=== PATIENT | male | born 1985 | race Caucasian/White ===

== ENCOUNTER 2016-10-07 00:38 | Emergency (ER) | payer SELFPAY ==
[~2016-10-07] VITALS: Ht 177.8 cm; Wt 67.0 kg
[~2016-10-07 00:38] MED LIST: MMW SSP; PENI500T PO; Z.0.NO CURRENT MEDS
[2016-10-07 00:44] VITALS: BP 102/56; PULSE 74; RESP 16; TEMP 98.7; O2SAT 99
[2016-10-07] MEDS ORDERED: MORPHINE SULFATE 4 MG/ML INJ IV PUSH ONE (01:30)
[2016-10-07] MEDS ORDERED: DIPHTH/TETANUS/ACEL PERTUSSIS (BOOSTER) 0.5 ML VIAL/PFS IM ONE (01:30)
[2016-10-07] MEDS ORDERED: LIDOCAINE HCL 2% 50 ML VIAL INFIL ONE (02:30)
--- NOTE | 2016-10-07 03:11 | RADRPT ---
EXAM DATE/TIME: 10/07/2016 02:42 [place] COMPARISON: No previous studies available for comparison. INDICATIONS : Laceration to palm of left hand. MEDICAL HISTORY : None. SURGICAL HISTORY : None. ENCOUNTER: Initial ACUITY: 1 day PAIN SCORE: 8/10 LOCATION: Left upper extremity FINDINGS: Three view examination of the left hand demonstrates no soft tissue swelling, dislocation, or fractur e. The carpal bones appear intact. The interphalangeal and metacarpophalangeal joints are intact. Bony mineralization is normal. CONCLUSION: 1. No acute findings. Roby Heart MD on October 07, 2016 at 3:08 Board Certified Radiologist. This report was verified electronically.
[2016-10-07] MEDS ORDERED: oxyCODONE/ACETAMINOPHEN 5 MG/325 MG TAB PO ONE (03:30)
--- NOTE | 2016-10-07 05:09 | PD ---
Physical Exam Date Seen by Provider: Oct 07, 2016 Time Seen by Provider: 05:01 Narrative Left hand: Patient has a deep laceration to the palmar surface measuring approximately 9 cm. The laceration goes through the subcutaneous tissue into the muscle belly of the hand. Patient is able to extend his fingers freely and flex them fully. There is no apparent tendon injury. No apparent nerve or vascular injury. Bleeding under control. Data Data Last Documented VS Vital Signs Date Time Temp Pulse Resp B/P Pulse Ox O2 Delivery O2 Flow Rate FiO2 10/07/16 00:51 74 16 10/07/16 00:44 98.7 102/56 99 Orders Morphine Inj (Morphine Inj) (10/07/16 01:30) [id number] (Booster) Inj (Boostrix (10/07/16 01:30) Lidocaine 2% Inj (Xylocaine 2% Inj) (10/07/16 02:30) Hand, Complete ([id number]) (10/07/16 ) Oxycodone-Acetamin 5-325 Mg (Percocet (10/07/16 03:30) MDM Medical Record Reviewed: Yes Supervised Visit with DORON: Yes Interpretation(s) Last 24 hours Impressions Hand X-Ray 10/07/16 0000 Signed Impressions: Service Date/Time: October 02:42 - CONCLUSION: 1. No acute findings. Roby Heart MD Differential Diagnosis MDM: High Differential diagnoses: Fracture, sprain, strain, dislocation, contusion, neurovascular injury Narrative Course Patient's hand laceration closed at the request of Dr. Sainz and Dr. Will the hand surgeon. This is a complex left hand laceration Procedures Procedure Narrative LACERATION LOCATION: Left volar palm LENGTH: 9 cm NUMBER OF STITCHES/JOE: 38 REPAIR: The area of the laceration was prepped with Betadine and sterilely draped. The laceration was infiltrated with 1% lidocaine with epinephrine. The wound was copiously irrigated and explored without evidence of foreign body , tendon injury or neurovascular injury. The muscle belly of the hypothenar eminence is approximated using 4-0 Vicryl. The subcutaneous tissues are approximated using 4-0 Vicryl. The skin was closed using 5-0 proline. This was a complex 3 layer repair. A sterile dressing was applied. A large baseball mitt bulky dressing. The patient was advised to keep the dressing clean and dry. Patient tolerated the procedure well. Diagnosis Primary Impression: complex left hand laceration Referrals: Sherlyn Will MD 2 days Patient Instructions: General Instructions Departure Forms: Tests/Procedures, Work Release Special Instructions: No use of the left hand until released by Dr. Will the hand surgeon. Additional Instruction: Rest. Strict elevation above the heart. Keep her hand clean and dry. Do not disrupt the dressing. Medications as directed. Call Dr. Will for an appointment. Return to the ER if any problems. Med/Other Pt SpecificInfo: Prescription(s) given, Wound Care Scripts No Active Prescriptions or Reported Meds Disposition: 01 DISCHARGE HOME Condition: Stable Roby Love Oct 07, 2016 05:08
[2016-10-07] MEDS ORDERED: CEPH-460 PO (05:24)
--- NOTE | 2016-10-07 05:25 | PD ---
HPI Chief Complaint: Laceration/Skin Injury Time Seen by Provider: 01:03 Travel History International Travel<30 days: No Contact w/Intl Traveler<30days: No Traveled to known affect area: No History of Present Illness HPI Patient is a 30-year-old male who comes in with a laceration to his left hand. He says he was sharpening a knife today when the stone slipped and he cut his hand. It happened this evening, just prior to arrival. He says it started bleeding heavily, so they wrapped his hand and brought him in. He does not know when his last tetanus shot was. He denies any other injuries. He denies numbness to his hands. He is able to move his fingers. [facility] Past Medical History Medical History: Denies Significant Hx Past Surgical History Other Surgery: Yes (foot surgery 16 years ago) Social History Alcohol Use: Yes Tobacco Use: Yes (1/2 PK PER DAY) Substance Use: Yes (WEED DAILY) Allergies-Medications (Allergen,Severity, Reaction): Coded Allergies: No Known Allergies (Verified , 10/07/16) Reported Meds & Prescriptions Reported Meds & Active Scripts Active No Active Prescriptions or Reported Medications Review of Systems General / Constitutional: No: Fever HENT: No: Headaches Cardiovascular: No: Chest Pain or Discomfort Respiratory: No: Shortness of Breath Gastrointestinal: No: Nausea, Vomiting Musculoskeletal: Positive: Pain, Other (laceration) Neurologic: No: Weakness, Sensory Disturbance Physical Exam Narrative GENERAL: Awake and alert, in no acute distress. SKIN: Warm and dry. Large laceration to left ulnar side of the hand. Skin and muscle aren't gaping. Blood is slowly oozing. HEAD: Atraumatic. Normocephalic. EYES: Pupils equal and round. No scleral icterus. NECK: Trachea midline. No JVD. CARDIOVASCULAR: Regular rate and rhythm. No murmur appreciated. RESPIRATORY: No accessory muscle use. Clear to auscultation. Breath sounds equal bilaterally. MUSCULOSKELETAL: No obvious deformities. No clubbing. No cyanosis. No edema. Able to fully extend and flex the fingers of the left hand. Radial pulse intact. Sensation mildly decreased to the left fourth and fifth fingers. Capillary refill intact, <2 sec. NEUROLOGICAL: Awake and alert. No obvious cranial nerve deficits. Motor grossly within normal limits. Normal speech. Data Data Last Documented VS Vital Signs Date Time Temp Pulse Resp B/P Pulse Ox O2 Delivery O2 Flow Rate FiO2 10/07/16 00:51 74 16 10/07/16 00:44 98.7 102/56 99 Orders Morphine Inj (Morphine Inj) (10/07/16 01:30) [id number] (Booster) Inj (Boostrix (10/07/16 01:30) Lidocaine 2% Inj (Xylocaine 2% Inj) (10/07/16 02:30) Hand, Complete ([id number]) (10/07/16 ) Oxycodone-Acetamin 5-325 Mg (Percocet (10/07/16 03:30) MDM Medical Decision Making Medical Screen Exam Complete: Yes Emergency Medical Condition: Yes Differential Diagnosis Laceration versus tendon injury versus nerve injury Narrative Course Patient is a 30-year-old male comes in after sustaining a laceration to his hand. Exam shows gaping wound to the left hand. He has full range of motion of his fingers. There are no exposed tendons or bone. X-ray performed shows no foreign bodies, no bone involvement. Patient given tetanus. Given pain medicine. I spoke with Dr. Will of hand surgery regarding the wound. He advises closure and follow-up in his office. Wound closed by JOAN Reese. Wound bandaged and patient discharged. Patient advised to keep the wound clean and dry. Advised to keep it covered while working. Advised to follow-up with Dr. Will in his office. Advised to return to the ED for any signs of infection or any other worsening symptoms. Given tetanus booster. Discharge with prescription for Keflex for prophylaxis. Diagnosis Primary Impression: complex left hand laceration Referrals: Sherlyn Will MD 2 days Patient Instructions: General Instructions, Laceration (ED) Departure Forms: Work Release, Special Instructions: No use of the left hand until released by Dr. Will the hand surgeon. Tests/Procedures Additional Instructions: Rest. Strict elevation above the heart. Keep her hand clean and dry. Do not disrupt the dressing. Medications as directed. Call Dr. Will for an appointment. Return to the ER if any problems. Scripts Cephalexin (Keflex)500 Mg [id number] Mg PO Q8H 5 Days Ref 0 Prov:Mariam James MD 10/07/16 Disposition: 01 DISCHARGE HOME Condition: Stable Mariam James MD Oct 07, 2016 05:24
[2016-10-07 05:57] VITALS: BP 121/71; PULSE 58; RESP 18; TEMP 98.2; O2SAT 100
== END 2016-10-07 05:45 | disposition home or self-care (01) ==
LOC: NEPE 00:38
DX: S61.412A Laceration without foreign body of left hand, initial encounter (principal); F17.210 Nicotine dependence, cigarettes, uncomplicated; W26.0XXA Contact with knife, initial encounter; Y93.89 Activity, other specified; Z23 Encounter for immunization; F12.90 Cannabis use, unspecified, uncomplicated
CPT/HCPCS: 13132; 13133; 73130; 90471; 90715; 96374; 99283; J2270